=== PATIENT | male | born 1975 | race Caucasian/White ===

== ENCOUNTER 2017-03-16 04:22 | Observation (INO) | payer SELFPAY ==
[2017-03-16] VITALS (8 sets, daily range): BP systolic 107–127; BP diastolic 66–87; PULSE 59–78; RESP 16–19; TEMP 97.8; Ht 170.2 cm; Wt 86.8 kg
[~2017-03-16] VITALS: Ht 170.2 cm; Wt 86.8 kg
[2017-03-16] MEDS ORDERED: ASPIRIN 325 MG TAB PO STA (04:35)
[2017-03-16] MEDS ORDERED: NITROGLYCERIN (SL) 0.4 MG TAB ONE (05:16)
[2017-03-16 05:17] LABS: ADD SCAN DIFF NO
[2017-03-16 05:28] LABS: BASOPHILS % 0.6 % (0.0-2.0); EOSINOPHILS # 0.3 10^3/ul (0.0-0.5); EOSINOPHILS % 5.4 % (0.0-7.0); HEMATOCRIT 40.3 % (42.0-52.0); LYMPHOCYTES # 2.7 10^3/ul (0.8-2.9); LYMPHOCYTES % 42.3 % (15.0-51.0); MEAN CORPUSCULAR HEMOGLOBIN 30.2 pg (29.0-33.0); MEAN CORPUSCULAR HGB CONC 34.7 g/dl (32.0-37.0); MEAN PLATELET VOLUME 10.5 fl (7.4-10.4); MONOCYTE # 0.4 10^3/ul (0.3-0.9); MONOCYTES % 6.5 % (0.0-11.0); NEUTROPHIL # 2.8 10^3/ul (1.6-7.5); PLATELET COUNT 296 10^3/UL (140-415); RED BLOOD COUNT 4.63 10^6/ul (4.70-6.10); RED CELL DISTRIBUTION WIDTH 12.2 % (11.5-14.5); WHITE BLOOD COUNT 6.3 10^3/ul (4.8-10.8)
[2017-03-16] MEDS ORDERED: NITROGLYCERIN (SL) 0.4 MG TAB SL ONE (05:30)
[2017-03-16 05:42] LABS: INR 0.97; PARTIAL THROMBOPLASTIN TIME 25.1 Sec (25.0-35.0); PROTIME 12.9 Sec (12.2-14.2)
[2017-03-16 05:48] LABS: ANION GAP 15 (8-16); BLOOD UREA NITROGEN 14 mg/dl (7-20); CALCIUM 9.4 mg/dl (8.4-10.2); CARBON DIOXIDE 22 mmol/L (21-31); CHLORIDE 106 mmol/L (97-110); CREATININE 0.91 mg/dl (0.61-1.24); GLUCOSE 104 mg/dl (70-220); POTASSIUM 3.5 mmol/L (3.5-5.1); SODIUM 139 mmol/L (135-144)
[2017-03-16 05:59] LABS: B-TYPE NATRIURETIC PEPTIDE 51 PG/ML (0-125)
[2017-03-16 06:04] LABS: TROPONIN-I < 0.012 ng/ml (0.00-0.12)
--- NOTE | 2017-03-16 06:09 | RADRPT ---
PROCEDURE: CHEST - 1 VIEW CLINICAL INDICATION: 42-year-old male with chest pain. TECHNIQUE: A single frontal AP upright portable view of the chest was performed. The images were reviewed on a PACS workstation. COMPARISON: None. FINDINGS: The cardiomediastinal silhouette has a normal appearance. There is no evidence for an infiltrate. There is no evidence for congestive heart failure. There is no evidence for pneumothorax. The osseou s structures are intact. IMPRESSION: No evidence for active cardiopulmonary disease. .Peewee Rich MD, MD Date Time Electronically viewed and signed by .Peewee Rich MD, on 03/16/2017 06:09 .M/
--- NOTE | 2017-03-16 06:37 | ERA ---
ER Documentation Chief Complaint Date/Time DATE: 03/16/17 TIME: 06:34 Chief Complaint cp while driving HPI Patient is a 42-year-old male who presents with sudden onset, constant, moderate left precordial chest pain that is pressure-like in nature that occurred approximately 3 hours ago. The patient states that he was driving at the time. He states that it was associated with diaphoresis, nausea, and shortness of breath. He felt paresthesias in his left arm during the episode. Patient denies vomiting, denies pleuritic pain, denies cough. The patient reports a prior episode 2 years ago after which he had a negative workup in the emergency department. The patient states that this episode was more severe. The patient states that his symptoms resolved approximately 30 minutes later after receiving medication from paramedics. ROS All systems reviewed and are negative except as per history of present illness. Allergies Allergies: Coded Allergies: No Known Allergy (Unverified , 03/16/17) PMhx/Soc Past medical history: None Past surgical history: Orchiectomy for internal bleeding Social history: Smokes 1 pack of cigarettes per day for 30 years Medical and Surgical Hx: pt denies Medical Hx History of Surgery: Yes (Testicular surgery) Anesthesia Reaction: No Hx Neurological Disorder: No Hx Respiratory Disorders: No Hx Cardiac Disorders: No Hx Psychiatric Problems: No Hx Miscellaneous Medical Probl: No Hx Alcohol Use: No Hx Substance Use: No Hx Tobacco Use: No Smoking Status: Never smoker FmHx Family History: coronary disease (Father had first cardiac cath in his early 40s), No diabetes Physical Exam Vitals Vital Signs Date Time Temp Pulse Resp B/P Pulse Ox O2 Delivery O2 Flow Rate FiO2 03/16/17 06:50 76 18 131/83 99 Room Air 03/16/17 04:52 98.2 73 18 126/90 98 Room Air 03/16/17 04:30 98.4 77 18 117/78 100 Physical Exam Const: Alert, no acute distress Head: Atraumatic Eyes: Normal Conjunctiva, no pallor, no icterus ENT: Normal External Ears, Nose and Mouth. Moist mucous membranes Neck: Full range of motion. No JVD Resp: Clear to auscultation bilaterally, no wheezes, no rales Cardio: Regular rate and rhythm, no murmurs Abd: Soft, non tender, non distended. Skin: No petechiae or rashes Back: No midline or flank tenderness Ext: No cyanosis, or edema, 2+ pulses in 4 extremities Neur: Awake and alert, cranial nerves II through XII intact bilaterally, strength and sensation full in 4 extremities Psych: Normal Mood and Affect Result Diagram: 03/16/1743903/16/17439 Results 24 hrs Laboratory Tests Test 03/16/17 04:40 White Blood Count 6.310^3/ul Red Blood Count 4.6310^6/ul Hemoglobin 14.0g/dl Hematocrit 40.3% Mean Corpuscular Volume 87.0fl Mean Corpuscular Hemoglobin 30.2pg Mean Corpuscular Hemoglobin Concent 34.7g/dl Red Cell Distribution Width 12.2% Platelet Count 01413^3/UL Mean Platelet Volume 10.5fl Neutrophils % 45.0% Lymphocytes % 42.3% Monocytes % 6.5% Eosinophils % 5.4% Basophils % 0.6% Nucleated Red Blood Cells % 0.0/100WBC Neutrophils # 2.810^3/ul Lymphocytes # 2.710^3/ul Monocytes # 0.410^3/ul Eosinophils # 0.310^3/ul Basophils # 0.010^3/ul Nucleated Red Blood Cells # 0.010^3/ul Prothrombin Time 12.9Sec Prothrombin Time Ratio 1.0 INR International Normalized Ratio 0.97 Activated Partial Thromboplast Time 25.1Sec Sodium Level 139mmol/L Potassium Level 3.5mmol/L Chloride Level 106mmol/L Carbon Dioxide Level 22mmol/L Anion Gap 15 Blood Urea Nitrogen 14mg/dl Creatinine 0.91mg/dl Glucose Level 104mg/dl Calcium Level 9.4mg/dl Troponin I < 0.012ng/ml B-Type Natriuretic Peptide 51PG/ML Current Medications Medications (Trade) Dose Ordered Sig/Quita Route PRN Reason Start Time Stop Time Status Last Admin Dose Admin Aspirin (Aspirin) 325 mg ONCE STAT PO 03/16/17 04:35 03/16/17 04:36 DC 03/16/17 04:51 Nitroglycerin (Nitroglycerin (Sl Tab) 0.4 Mg) 1 tab ONCE ONCE SL 03/16/17 05:30 03/16/17 05:31 DC 03/16/17 05:17 Nitroglycerin (Nitroglycerin (Sl Tab) 0.4 Mg) 25 tab STK-MED ONCE .ROUTE 03/16/17 05:16 03/16/17 05:17 DC Ondansetron HCl (Zofran Inj) 4 mg ER BRIDGE PRN IV NAUSEA AND/OR VOMITING 03/16/17 07:00 03/17/17 06:59 Acetaminophen 650 mg 650 mg ER BRIDGE PRN PO MILD PAIN/FEVER 03/16/17 07:00 03/17/17 06:59 Sodium Chloride (NS) 1,000 ml @ 70 mls/hr [id number] IV 03/16/17 07:00 UNV IV Flush (NS 3 ml) 3 ml PER PROTOCOL IV 03/16/17 07:00 UNV Ondansetron HCl (Zofran Inj) 4 mg Q6H PRN IV NAUSEA AND/OR VOMITING 03/16/17 07:00 UNV Acetaminophen (Tylenol Tab) 650 mg Q6H PRN PO PAIN LEVEL 1-3 OR FEVER 03/16/17 07:00 UNV Pantoprazole (Protonix Iv) 40 mg DAILY@06 IV 03/17/17 06:00 UNV Nitroglycerin (Nitroglycerin (Sl Tab) 0.4 Mg) 1 tab Q5M PRN SL ANGINA 03/16/17 07:30 UNV Procedures/MDM EKG read by me: Time 0433, rate 70 Rhythm: Normal sinus Brady: Normal Intervals: Normal ST-T waves: no ischemic changes Ectopy: No Q-waves: No Impression: No evidence of ischemia or arrhythmia MDM: Patient is a 42-year-old male who presents with a single episode of substernal chest pain lasting 30 minutes. The pain has many typical anginal features. The patient has an extensive smoking history and family history of premature coronary artery disease. There are no features that are concerning for aortic dissection or PE. The patient has a nonischemic EKG after resolution of pain, and first troponin is negative. I will, however, admit him for serial troponins and further cardiac workup including likely stress test. Departure Diagnosis: Primary Impression: Chest pain Qualified Code: R07.2 - Precordial pain Condition: Stable LILY SPEARS MD Mar 16, 2017 06:37
[2017-03-16] MEDS ORDERED: ACETAMINOPHEN 325 MG TAB PO PRN ×2 (07:00)
[2017-03-16] MEDS ORDERED: NACL 0.9% 3 ML SYG IV SCH (07:00)
[2017-03-16] MEDS ORDERED: ONDANSETRON 4 MG INJ IV PRN ×2 (07:00)
[2017-03-16] MEDS ORDERED: NITROGLYCERIN (SL) 0.4 MG TAB SL PRN (07:30)
[2017-03-16] MEDS: PANTOPRAZOLE 40 MG INJ IV SCH (08:02)
[2017-03-16] MEDS: SOD CHLORIDE 0.9% 1,000 ML IV SCH ×3 (09:18→23:14)
--- NOTE | 2017-03-16 12:04 | CONS ---
Date/Time of Note Date/Time of Note DATE: 03/16/17 TIME: 11:58 Assessment/Plan Assessment/Plan Additional Assessment/Plan Chest pain Tobacco use -Patient with sudden onset of left-sided chest pain while driving. Pain is also exacerbated by flexion of his chest muscles. Prior to this, he denies exertional chest pain or shortness of breath. Initial ECG with no significant ischemic abnormalities and initial troponins are negative. Would obtain serial cardiac enzymes, check lipid panel, echocardiogram, continue aspirin. Consultation Date/Type/Reason Admit Date/Time Mar 16, 2017 at 06:58 Type of Consultation: cv Reason for Consultation Chest pain Hx of Present Illness This is a 42-year-old male past medical history of tobacco use who presents with chest pain. Patient on his normal state of health and working yesterday evening. As he was driving a truck, he developed left-sided chest pain. Symptoms lasted for approximately 2-3 minutes. Pain was associated with sweating. Symptoms resolved and then recurred approximately few minutes later. Because of the above symptoms, he came to the emergency room for further evaluation and care. Pain is worse with gripping his left hand and flexing his chest muscle on the left side. He otherwise denies exertional chest pain or shortness of breath. 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 Denies any fevers or chills, abdominal pain, nausea or vomiting. 12 point review of systems was performed with all pertinent positives and negatives mentioned above and all else is negative Past Medical History Medical History: no pertinent history Past Surgical History Testicle surgery Family History Significant Family History: other (Father with heart disease diagnosed in his mid to late 40s) Social History Alcohol Use: occasionally Smoking Status: Current every day smoker Exam/Review of Systems Vital Signs Vitals Vital Signs Date Time Temp Pulse Resp B/P Pulse Ox O2 Delivery O2 Flow Rate FiO2 03/16/17 11:48 98.0 64 18 124/87 98 03/16/17 10:10 Room Air Exam No apparent distress, family at bedside Constitutional: alert, oriented Head: normocephalic Neck: supple Respiratory: clear to auscultation, normal air movement Cardiovascular: other (S1-S2 heard), regular rate and rhythm Gastrointestinal: bowel sounds, non-tender, soft Musculoskeletal: other (Pain with palpation of left-sided chest wall) Extremities: other (No edema) Results Result Diagram: 03/16/17 0440 03/16/17 0440 Results 24 hrs Laboratory Tests Test 03/16/17 04:40 White Blood Count 6.3 Red Blood Count 4.63 L Hemoglobin 14.0 Hematocrit 40.3 L Mean Corpuscular Volume 87.0 Mean Corpuscular Hemoglobin 30.2 Mean Corpuscular Hemoglobin Concent 34.7 Red Cell Distribution Width 12.2 Platelet Count 296 Mean Platelet Volume 10.5 H Neutrophils % 45.0 Lymphocytes % 42.3 Monocytes % 6.5 Eosinophils % 5.4 Basophils % 0.6 Nucleated Red Blood Cells % 0.0 Neutrophils # 2.8 Lymphocytes # 2.7 Monocytes # 0.4 Eosinophils # 0.3 Basophils # 0.0 Nucleated Red Blood Cells # 0.0 Prothrombin Time 12.9 Prothrombin Time Ratio 1.0 INR International Normalized Ratio 0.97 Activated Partial Thromboplast Time 25.1 Sodium Level 139 Potassium Level 3.5 Chloride Level 106 Carbon Dioxide Level 22 Anion Gap 15 Blood Urea Nitrogen 14 Creatinine 0.91 Glucose Level 104 Calcium Level 9.4 Troponin I < 0.012 B-Type Natriuretic Peptide 51 Medications Medications Current Medications Sodium Chloride (NS) 1,000 ml @ 70 mls/hr [id number] IV Last administered on 09:18; Admin Dose 70 MLS/HR; Start 03/16/17 at 07:00 Ondansetron HCl (Zofran Inj) 4 mg Q6H PRN IV NAUSEA AND/OR VOMITING; Start 03/16 at 07:00 Acetaminophen (Tylenol Tab) 650 mg Q6H PRN PO PAIN LEVEL 1-3 OR FEVER; Start at 07:00 Pantoprazole (Protonix Iv) 40 mg DAILY@06 IV Last administered on 03/16/17 08: 02; Admin Dose 40 MG; Start 03/16/17 at 08:00 Nitroglycerin (Nitroglycerin (Sl Tab) 0.4 Mg) 1 tab Q5M PRN SL ANGINA; Start at 07:30 Procedures Procedures ECG done today demonstrates sinus rhythm at 70 bpm, QRS 90 ms, no significant ischemic STT wave abnormalities Juan J Ovalle DO Mar 16, 2017 12:04
--- NOTE | 2017-03-16 12:33 | HP ---
Date/Time of Note Date/Time of Note DATE: 03/16/17 TIME: 12:28 Assessment/Plan VTE Prophylaxis VTE Prophylaxis Intervention: heparin Lines/Catheters IV Catheter Type (from [facility]): Peripheral IV Urinary Cath still in place: No Assessment/Plan Chief Complaint/Hosp Course Assessment and plan: 42-year-old male +[id number] smoking history, presents with chest pain. 1. Chest pain: Rule out acute coronary syndrome versus musculoskeletal source -Admit patient to telemetry floor, trend his troponins every 6 hours. Aspirin, morphine, oxygen, nitroglycerin as needed. Echocardiogram is pending. Follow cardiology recommendations. Check TSH A1c lipid panel 2. GI prophylaxis: H2 david 3. DVT prophylaxis: Heparin subcutaneous Problems: HPI/ROS Admit Date/Time Admit Date/Time Mar 16, 2017 at 06:58 Hx of Present Illness 42-year-old male past medical history of smoking, who presents with chest pain. Described as sudden onset, constant, moderate left precordial chest pain that is pressure-like in nature that occurred approximately 3 hours prior to admission. The patient states that he was driving at the time. Positive diaphoresis, nausea, and shortness of breath. He felt paresthesias in his left arm during the episode. Patient denies vomiting, denies pleuritic pain, denies cough. The patient reports a prior episode 2 years ago after which he had a negative workup in the emergency department. The patient states that this episode was more severe. The patient states that his symptoms resolved approximately 30 minutes later after receiving medication from paramedics. He was seen by cardiology team as well and first troponin has been negative. PMH/Family/Social Past Medical History Medical History: no pertinent history Family History Significant Family History: heart disease (Father) Social History Alcohol Use: occasionally Smoking Status: Current every day smoker (30 pack years) Drug Use: none Exam/Review of Systems Vital Signs Vitals Vital Signs Date Time Temp Pulse Resp B/P Pulse Ox O2 Delivery O2 Flow Rate FiO2 03/16/17 12:06 59 03/16/17 11:48 98.0 18 124/87 98 03/16/17 10:10 Room Air Exam Exam Gen: Lying in bed, no acute distress, alert Constitutional: alert, oriented Head: normocephalic Neck: supple Respiratory: clear to auscultation, normal air movement Cardiovascular: other (S1-S2 heard), regular rate and rhythm Gastrointestinal: bowel sounds, non-tender, soft Musculoskeletal: other (some pain with palpation of left-sided chest wall) Extremities: other (No edema) Labs Result Diagram: 03/16/1743903/16/17 0440 Medications Medications Current Medications Sodium Chloride (NS) 1,000 ml @ 70 mls/hr [id number] IV Last administered on 09:18; Admin Dose 70 MLS/HR; Start 03/16/17 at 07:00 Ondansetron HCl (Zofran Inj) 4 mg Q6H PRN IV NAUSEA AND/OR VOMITING; Start 03/16 at 07:00 Acetaminophen (Tylenol Tab) 650 mg Q6H PRN PO PAIN LEVEL 1-3 OR FEVER; Start at 07:00 Pantoprazole (Protonix Iv) 40 mg DAILY@06 IV Last administered on 03/16/17 08: 02; Admin Dose 40 MG; Start 03/16/17 at 08:00 Nitroglycerin (Nitroglycerin (Sl Tab) 0.4 Mg) 1 tab Q5M PRN SL ANGINA; Start at 07:30 Aspirin (Halfprin) 81 mg DAILY PO ; Start 03/17/17 at 09:00 Nicotine (Nicoderm 21 Mg/ 24hr) 1 patch DAILY TRANSDERM ; Start 03/16/17 at 12:30 ; Status NANCY FREGOSO Mar 16, 2017 12:33
[2017-03-16] MEDS: NICOTINE (21 MG/24 HR) PATCH TRANSDERM SCH (12:44)
[2017-03-16 13:03] LABS: CREATINE KINASE 65 IU/L (23-200)
[2017-03-16 13:10] LABS: CK-MB 0.31 ng/ml (0.0-2.4); TROPONIN-I < 0.012 ng/ml (0.00-0.12)
[2017-03-16] MEDS: FAMOTIDINE 20 MG TAB PO SCH (13:30)
[2017-03-16] MEDS: HEPARIN 5,000 UNIT/0.5 ML VIAL SC SCH ×2 (13:37→21:37)
[2017-03-16 13:56] LABS: CREATINE KINASE 61 IU/L (23-200)
[2017-03-16 13:57] LABS: CHOL/HDL RATIO 4.2 RATIO
[2017-03-16 14:12] LABS: CK-MB 0.32 ng/ml (0.0-2.4); TROPONIN-I < 0.012 ng/ml (0.00-0.12)
[2017-03-16 17:06] LABS: CREATINE KINASE 62 IU/L (23-200)
[2017-03-16 17:21] LABS: CK-MB 0.27 ng/ml (0.0-2.4); TROPONIN-I < 0.012 ng/ml (0.00-0.12)
--- NOTE | 2017-03-16 21:16 | RADRPT ---
Echocardiogram Report Patient Name: FERNANDO POON Gender: Male Date: 1975 Study Date: 16-Mar-2017 [place] Operator: HINA Location: I Ref. Physician: ANISA MCNAIR Quality: Adequate Procedures: Transthoracic echocardiogram with complete 2D, M-Mode, and doppler examination. Indications: Chest Pain. 2D/M Mode Doppler Measurement Value Normal Ranges Measurement Value Normal Ranges AoR Diam MM 3.1 cm AV Peak Jesús 1.5 m/sec ACS MM 2.0 cm AV Peak PG 8.8 mmHg LVIDd 2D 4.5 3.5 - 5.6 cm LVOT Peak Jesús 1.3 m/sec LVIDs 2D 2.5 2.1 - 4.1 cm LVOT Peak PG 6.7 mmHg LVPWd 2D 1.0 0.6 - 1.1 cm MV E Peak Jesús 0.6 m/sec IVSd 2D 1.2 0.6 - 1.1 cm MV A Peak Jesús 0.5 m/sec EDV 2D 94.4 cm3 MV E/A 1.2 ESV 2D 16.3 cm3 MV Decel Time 157 msec LA Dimen 2D 3.6 2.3 - 4.0 cm MV Decel [place] 4 MV E/A 1.2 PV Peak Jesús 1.1 m/sec PV Peak PG 5.0 mmHg Findings Left Ventricle: Hyperdynamic left ventricular systolic function. Normal left ventricular cavity size. Normal left ventricular wall thickness. Ejection fraction is visually estimated at 70 %. Tissue Doppler/Mitral Doppler indices are within normal limits. Right Ventricle: Normal right ventricular size. Normal right ventricular systolic function. Left Atrium: The left atrium is normal in size. Right Atrium: The right atrium is normal in size. Mitral Valve: Normal appearance and function of the mitral valve with trace physiologic regurgitation. Aortic Valve: Normal appearance of the aortic valve. No significant aortic stenosis or insufficiency. Tricuspid Valve: Normal appearance of the tricuspid valve. No evidence of tricuspid regurgitation. Pulmonic Valve: Normal pulmonic valve appearance. No evidence of pulmonic regurgitation. Pericardium: Normal pericardium with no significant pericardial effusion. Aorta: Normal aortic root. IVC: Normal size and normal respiratory collapse consistent with normal right atrial pressure. Pulmonary Artery: Normal pulmonary artery size. Conclusions Hyperdynamic left ventricular systolic function. Normal left ventricular cavity size. Normal left ventricular wall thickness. Ejection fraction is visually estimated at 70 %. Tissue Doppler/Mitral Doppler indices are within normal limits. Normal right ventricular size. Normal right ventricular systolic function. The left atrium is normal in size. The right atrium is normal in size. No significant valvular stenosis or regurgitation seen. Normal pericardium with no significant pericardial effusion. Electronically Signed By: Juan J Ovalle 16-Mar-2017 21:15:50 -0700 Patient Name: FERNANDO POON Study Date: 16-Mar-2017 [id number]
[2017-03-17] VITALS (7 sets, daily range): BP systolic 112–126; BP diastolic 57–72; PULSE 40–60; RESP 16–20
[2017-03-17] MEDS: PANTOPRAZOLE 40 MG INJ IV SCH (05:39)
[2017-03-17] MEDS ORDERED: ASPIRIN (EC) 81 MG TAB PO SCH (09:00)
[2017-03-17] MEDS: HEPARIN 5,000 UNIT/0.5 ML VIAL SC SCH (09:00)
[2017-03-17] MEDS: FAMOTIDINE 20 MG TAB PO SCH (09:00)
[2017-03-17] MEDS: NICOTINE (21 MG/24 HR) PATCH TRANSDERM SCH (09:00)
--- NOTE | 2017-03-17 09:24 | PDOCDIS ---
Discharge Instructions CONDITION Patient Condition: Good HOME CARE INSTRUCTIONS: Diet Instructions: Regular ACTIVITY: Activity Restrictions: Slowly Increase Activity FOLLOW UP/APPOINTMENTS Follow-up Plan Follow up with your regular doctor within 1 week to discuss your cholesterol STOP SMOKING KAIN DELCID MD Mar 17, 2017 09:24
[2017-03-17] MEDS ORDERED: NICO1PAT6 TRANSDERM (09:25)
--- NOTE | 2017-03-17 09:26 | DS ---
Date/Time of Note Date/Time of Note DATE: 03/17/17 TIME: 09:25 Discharge Summary Admission/Discharge Info Admit Date/Time Mar 16, 2017 at 06:58 Discharge Date/Time Discharge Diagnosis chest pain Patient Condition: Good Consults cardiology Procedures TTE 7.9 Conclusions Hyperdynamic left ventricular systolic function. Normal left ventricular cavity size. Normal left ventricular wall thickness. Ejection fraction is visually estimated at 70 %. Tissue Doppler/Mitral Doppler indices are within normal limits. Normal right ventricular size. Normal right ventricular systolic function. The left atrium is normal in size. The right atrium is normal in size. No significant valvular stenosis or regurgitation seen. Normal pericardium with no significant pericardial effusion. Laboratory Tests Test 03/16/17 11:10 03/16/17 11:30 03/16/17 13:00 03/16/17 16:33 Creatine Kinase 65 61 62 Creatine Kinase Index 0.5 0.5 0.4 Creatinine Kinase MB (Mass) 0.31 0.32 0.27 Troponin I < 0.012 < 0.012 < 0.012 Triglycerides Level 75 Cholesterol Level 165 LDL Cholesterol, Calculated 111 HDL Cholesterol 39 Cholesterol/HDL Ratio 4.2 Test 03/17/17 06:58 Thyroid Stimulating Hormone (TSH) 0.472 Hx of Present Illness 42-year-old male past medical history of smoking, who presents with chest pain. Described as sudden onset, constant, moderate left precordial chest pain that is pressure-like in nature that occurred approximately 3 hours prior to admission. The patient states that he was driving at the time. Positive diaphoresis, nausea, and shortness of breath. He felt paresthesias in his left arm during the episode. Patient denies vomiting, denies pleuritic pain, denies cough. The patient reports a prior episode 2 years ago after which he had a negative workup in the emergency department. The patient states that this episode was more severe. The patient states that his symptoms resolved approximately 30 minutes later after receiving medication from paramedics. He was seen by cardiology team as well and first troponin has been negative. Hospital Course Assessment and plan: 42-year-old male +[id number] smoking history, presented with chest pain. Ruled out for ACS with serial troponins. TTE unremarkable. Pt seen by cardiology service, and no additional cardiovascular f/u was advised in the inpatient setting--per cardiology eval, pain possibly musculoskeletal in origin. Pt discharged to f/u with PCP. Chest pain resolved at time of discharge. Home Meds Active Scripts Nicotine* (Nicotine* Patch) 21 mg/day Patch, 1 PATCH TRANSDERM DAILY for 14 Days , #14 PATCH Prov:KAIN DELCID MD 03/17/17 Follow-up Plan PCP within 7 days Primary Care Provider Shiva Gambino Time spent on discharge: > 30 minutes Pending Labs Laboratory Tests Test 03/16/17 11:10 03/16/17 11:30 03/16/17 13:00 03/16/17 16:33 Creatine Kinase 65IU/L (23-200) 61IU/L (23-200) 62IU/L (23-200) Creatine Kinase Index 0.5 0.5 0.4 Creatinine Kinase MB (Mass) 0.31ng/ml (0.0-2.4) 0.32ng/ml (0.0-2.4) 0.27ng/ml (0.0-2.4) Troponin I < 0.012ng/ml (0.00-0.12) < 0.012ng/ml (0.00-0.12) < 0.012ng/ml (0.00-0.12) Triglycerides Level 75mg/dl (0-149) Cholesterol Level 165mg/dl (100-200) LDL Cholesterol, Calculated 111mg/dl HDL Cholesterol 39mg/dl (27-67) Cholesterol/HDL Ratio 4.2RATIO Test 03/17/17 06:58 Thyroid Stimulating Hormone (TSH) 0.472MIU/L (0.465-4.680) KAIN DELCID MD Mar 17, 2017 09:25
[2017-03-17 09:39] LABS: CALCIUM 9.2 mg/dl (8.4-10.2); CREATININE 1.01 mg/dl (0.61-1.24); POTASSIUM 4.9 mmol/L (3.5-5.1)
== END 2017-03-17 10:32 | disposition home or self-care (01) ==
LOC: E/R 04:22 → MS4 06:58
PROVIDERS: ADMIT Family Medicine; ATTEND Family Medicine
DX: R07.9 Chest pain, unspecified (principal); F17.210 Nicotine dependence, cigarettes, uncomplicated; Z82.49 Family history of ischemic heart disease and other diseases of the circulatory system
CPT/HCPCS: 36415; 71010; 80048; 80061; 82550; 82553; 83036; 83735; 83880; 84443; 84484; 85025; 85610; 85730; 93005; 93306; 96374; 99285; C9113; G0378; J1644; J7030